=== PATIENT | male | born 1965 | race Two or more races ===

== ENCOUNTER 2016-12-19 11:06 | Emergency (ER) | payer OTHER ==
[~2016-12-19] VITALS: Ht 175.3 cm; Wt 111.8 kg
[2016-12-19] MEDS ORDERED: IOVERSOL 350 MG/ML 150 ML VIAL ONE (11:23)
[2016-12-19] MEDS ORDERED: SODIUM CHLORIDE 0.9% 100 ML ONE (11:23)
[2016-12-19 11:31] LABS: ANION GAP 10 mmol/L (8-16); CALCIUM, TOTAL 8.5 mg/dL (8.8-10.5); CARBON DIOXIDE 25 mmol/L (22-29); CHLORIDE 103 mmol/L (98-107); CREATININE 1.18 mg/dL (0.60-1.30); GLOMERULAR FILTR. RATE CALC > 60 mL/min (>60); POTASSIUM 3.5 mmol/L (3.5-5.1); SODIUM SERUM 138 mmol/L (136-145); UREA NITROGEN, BLOOD 12 mg/dL (7-18)
[2016-12-19 11:34] LABS: PROTHROMBIN TIME 10.1 SEC (9.4-11.6)
[2016-12-19 11:56] LABS: ALANINE AMINOTRANSFERASE 37 U/L (12-78); ALBUMIN 3.8 g/dL (3.4-5.0); ASPARTATE AMINOTRANSFERASE 24 U/L (15-37); BILIRUBIN,TOTAL 0.4 mg/dL (0.1-1.0); CREATINE KINASE MB 2.7 ng/mL (0-5); CREATINE KINASE, TOTAL 258 U/L (39-308); TOTAL PROTEIN, SERUM 8.1 g/dL (6.4-8.2)
[2016-12-19 11:56] LABS: BASOPHILS # (AUTO) 0.02 K/uL (0.00-0.20); BASOPHILS % (AUTO) 0.3 % (0.0-2.0); EOSINOPHILS # (AUTO) 0.09 K/uL (0.00-0.70); EOSINOPHILS % (AUTO) 0.93 % (1.0-6.0); HEMATOCRIT 44.4 % (41-53); HEMOGLOBIN 14.4 g/dL (13.5-17.5); LYMPHOCYTES # (AUTO) 2.3 K/uL (1.0-4.8); MEAN CORPUSCULAR HEMOGLOBIN 29.4 pg (26.0-34.0); MEAN CORPUSCULAR HGB CONC 32.5 G/dL (31.0-37.0); MEAN CORPUSCULAR VOLUME 91 fL (80-100); MONOCYTES # (AUTO) 0.7 K/uL (0.1-1.0); MONOCYTES % (AUTO) 6.9 % (2.0-9.0); NEUTROPHILS # (AUTO) 6.9 K/uL (1.8-7.7); PLATELET COUNT (AUTO) 175 K/uL (150-450); RED CELL DISTRIBUTION WIDTH 13.9 % (11.5-14.5)
[2016-12-19] MEDS ORDERED: HydrALAZINE HCL 20 MG/ML VIAL IVP ONE (12:00)
[2016-12-19] MEDS ORDERED: ASPIRIN 81 MG CHEWABLE TABLET PO ONE (12:30)
[2016-12-19 12:41] LABS: APPEARANCE,URINE CLEAR (CLEAR); GLUCOSE, URINE (UA) NEGATIVE (NEGATIVE); KETONES,URINE NEGATIVE (NEGATIVE); LEUKOCYTE ESTERASE ,URINE NEGATIVE (NEGATIVE); OCCULT BLOOD,URINE NEGATIVE (NEGATIVE); PH,URINE 6.5 (5.0-8.0); PROTEIN,URINE NEGATIVE (NEGATIVE)
[2016-12-19 12:44] LABS: ADD UA MICROSCOPIC NO
[2016-12-19] MEDS ORDERED: ALTEPLASE 81 MG in WATER FOR INJECTION,STERILE 81 ML IV ONE (12:45)
[2016-12-19] MEDS ORDERED: NITROGLYCERIN 2% (1 GM=INCH) PACKET TP ONE (12:45)
[2016-12-19] MEDS ORDERED: ALTEPLASE PER STROKE PROTOCOL CLINICAL ONE ×2 (12:45)
[2016-12-19] MEDS ORDERED: ALTEPLASE 9 MG in WATER FOR INJECTION,STERILE 9 ML IV ONE (12:45)
[2016-12-19] MEDS ORDERED: LABETALOL HCL 5 MG/ML 20 ML VIAL IVP ONE ×2 (12:45→14:00)
[2016-12-19 14:13] LABS: ERYTHROCYTE SEDIMENTATION RATE 4 MM/HR (0-15)
[2016-12-19 14:25] VITALS: BP 175/90
== END 2016-12-19 15:25 | disposition short-term general hospital (02) ==
LOC: EMS 11:08
DX: I63.9 Cerebral infarction, unspecified (principal); I10 Essential (primary) hypertension
CPT/HCPCS: 37195; 70496; 82962; 85651; 93005; 96365; 96374; 96375; 96376; 99291; J0360; J2997; J3490; J7050